=== PATIENT | female | born 1950 | race Caucasian/White ===

== ENCOUNTER → 2017-10-22 | Outpatient (CLI) | payer MEDICARE ==
[~2017-10-22] MED LIST: BACLOFEN20 MG PO; BACTRIM 400-801 EACH PO; CALCIUM600 MG PO; ESGIC 50-325-41 EACH PO; ESTROPIPATE1.5 MG PO; GABAPENTIN300 MG PO; MONTELUKAST SOD10 MG PO; NABUMETONE750 MG PO; NORCO 7.5-3251 EACH PO; OMEPRAZOLE20 MG PO; PRAVASTATIN SOD10 MG PO; PROCHLORPERAZIN10 MG PO; PROMETHAZINE HC25 M1 PO; REGLAN10 MG PO; SPIRONOLACTONE50 MG PO; ULTRAM50 MG PO; VENLAFAXINE HCL75 MG PO; VITAMIN D2000 UNIT PO
--- NOTE | 2017-10-23 07:57 | Diagnostic Imaging Report ---
Examination: MRI SPINE CERVICAL WITHOUT CONTRAST History: Chronic neck pain which radiates down the side of the left arm. Left cervical radiculopathy. Comparison studies: None Technique: Sagittal T1, T2 and IR, axial T2 and axial gradient echo intravenous contrast: None Findings: Alignment: Mild reversal of normal cervical lordosis centered at C5. No scoliosis. Cervicomedullary junction: No abnormalities. Patent foramen magnum. Soft tissues: No T2 hyperintense inflammatory changes. Spinal cord: Normal in size and signal from the foramen magnum through T1. Vertebrae: No fractures, infection or neoplasm. Subchondral cyst formation at the anterior margin of C2. Atypical (1.1 cm caudal dimension) hemangioma of the C2 vertebral body. Additional hemangiomata are demonstrated in the T1, T2, T3 and partially visualized T4 vertebral body. Degenerative changes: C1-C2: No abnormalities. C2-C3: Diffuse disc osteophyte complex, mild ligamentum flavum thickening and bilateral uncovertebral and facet arthropathy results in mild left neural foraminal narrowing and mild canal stenosis. No right foraminal stenosis. C3-C4: Diffuse disc osteophyte complex, mild ligamentum flavum thickening and bilateral uncovertebral arthropathy result in moderate right and severe left neural foraminal narrowing and moderate canal stenosis. Type I Modic change of the inferior and superior endplates posteriorly C3 and C4, respectively. C4-C5: Diffuse disc osteophyte complex and bilateral uncovertebral arthropathy result in severe bilateral neural foraminal narrowing and mild canal stenosis. C5-C6: Asymmetric to left disc osteophyte complex, mild ligamentum flavum thickening and bilateral uncovertebral arthropathy result in mild right and severe left neural foraminal narrowing and mild canal stenosis. C6-C7: Diffuse disc osteophyte complex, mild ligamentum flavum thickening and bilateral uncovertebral arthropathy results in moderate bilateral neural foraminal narrowing and mild canal stenosis. C7-T1: Diffuse disc osteophyte complex, mild ligamentum flavum thickening and left uncovertebral arthropathy result in mild left neural foraminal narrowing and mild canal stenosis. No right foraminal stenosis. IMPRESSION: 1. Degenerative changes from C2-C3 through C7-T1 with moderate canal stenosis at C3-C4 and mild canal stenosis at C2-C3 and from C4-C5 through C7-T1. 2. Degenerative foraminal stenosis: severe on the left at C3-C4 and C5-C6 and severe bilaterally at C4-C5. Signed by: Dr. Kaitlin Lao M.D. on 10/23/2017 7:53 AM
--- NOTE | 2017-10-23 08:11 | Diagnostic Imaging Report ---
Examination: MRI SPINE LUMBAR WITHOUT CONTRAST History: Chronic low back pain radiating down the back of the left lower extremity with associated weakness. Comparison studies: None Technique: Sagittal, coronal and axial T2 , sagittal T1 and STIR; axial spin density oblique. Findings: Number of lumbar vertebral bodies: Five. Alignment: Normal lordosis. Mild leftward curvature centered at L3. Soft tissues: No T2 hyperintense inflammatory changes. Posterior paraspinal soft tissues and muscles: No abnormality. Lower thoracic cord: Normal in signal and morphology. The tip of the conus is at L1. Cauda equina: No masses. No arachnoiditis. Vertebrae: No fractures, infection or neoplasm. Mixed type I and type II Modic changes of the L1-S1 vertebrae. Degenerative changes: L1-L2: Mild bilateral facet arthropathy. Mild diffuse disc bulge. No foraminal or canal stenosis. L2-L3: Diffuse disc bulge and mild bilateral facet arthropathy result in mild canal stenosis. No foraminal narrowing. L3-L4: Diffuse disc, mild ligamentum flavum thickening and mild bilateral facet arthropathy result in moderate right neural foraminal narrowing and mild canal stenosis. No left foraminal stenosis. L4-L5: Diffuse disc bulge mild ligamentum flavum thickening and mild bilateral facet arthropathy result in mild bilateral neural foraminal narrowing and mild canal stenosis. L5-S1: Asymmetric to the left disc bulge and mild bilateral facet arthropathy result in moderate left neural foraminal narrowing. No right foraminal or canal stenosis. IMPRESSION: 1. Degenerative changes from L1-L2 through L5-S1 with mild canal stenosis from L2-L3 through L4-L5. 2. Moderate right foraminal narrowing at L3-L4 and moderate on the left at L5-S1. Signed by: Dr. Kaitlin Lao M.D. on 10/23/2017 8:08 AM
== END | disposition home or self-care (01) ==
LOC: MRI 09:49
PROVIDERS: ATTEND Family Medicine
DX: M54.2 Cervicalgia (principal); M54.5 Low back pain; M47.812 Spondylosis without myelopathy or radiculopathy, cervical region; M47.816 Spondylosis without myelopathy or radiculopathy, lumbar region; M47.817 Spondylosis without myelopathy or radiculopathy, lumbosacral region; M48.02 Spinal stenosis, cervical region
CPT/HCPCS: 72141; 72148

== ENCOUNTER 2017-12-16 10:03 | Observation (INO) | payer MEDICARE ==
[~2017-12-16] VITALS: Ht 172.7 cm; Wt 71.9 kg
--- OUTSIDE RECORDS SUMMARY | 2017-12-16 10:05 | XMS REPORT ---
Author Author [facility] Address Unknown Phone Unavailable Care Team Providers Care [employer] Supervisor Name Role Phone FARAZ CAMP Unavailable Unavailable Problems This patient has no known problems. Allergies, Adverse Reactions, Alerts This patient has no known allergies or adverse reactions. Medications This patient has no known medications. Results Test Description Test Time Test Comments Text Results Atomic Results Result Comments MRI SPINE CERVICAL WO [place] [address] Patient Name: JOSE R TERRY MR #: [id number] : 1950 Age/Sex: 67/F Req #: [id number] Adm Physician: Ordered by: FARAZ CAMP MD Report #: [id number] Location: MRI Room/Bed: Procedure: [id number] MRI/MRI SPINE CERVICAL WO Exam Date: Exam Time: REPORT STATUS: Signed Examination: MRI SPINE CERVICAL WITHOUT CONTRAST History: Chronic neck pain which radiates down the side of the left arm. Left cervical radiculopathy. Comparison studies: None Technique: Sagittal T1, T2 and IR, axial T2 and axial gradient echo intravenous contrast: None Findings: Alignment: Mild reversal of normal cervical lordosis centered at C5. No scoliosis. Cervicomedullary junction: No abnormalities. Patent foramen magnum. Soft tissues: No T2 hyperintense inflammatory changes. Spinal cord: Normal in size and signal from the foramen magnum through T1. Vertebrae: No fractures, infection or neoplasm. Subchondral cyst formation at the anterior margin of C2. Atypical (1.1 cm caudal dimension) hemangioma of the C2 vertebral body. Additional hemangiomata are demonstrated in the T1, T2, T3 and partially visualized T4 vertebral body. Degenerative changes: C1-C2: No abnormalities. C2-C3: Diffuse disc osteophyte complex, mild ligamentum flavum thickening and bilateral uncovertebral and facet arthropathy results in mild left neural foraminal narrowing and mild canal stenosis. No right foraminal stenosis. C3-C4: Diffuse disc osteophyte complex, mild ligamentum flavum thickening and bilateral uncovertebral arthropathy result in moderate right and severe left neural foraminal narrowing and moderate canal stenosis. Type I Modic change of the inferior and superior endplates posteriorly C3 and C4, respectively. C4-C5: Diffuse disc osteophyte complex and bilateral uncovertebral arthropathy result in severe bilateral neural foraminal narrowing and mild canal stenosis. C5-C6: Asymmetric to left disc osteophyte complex, mild ligamentum flavum thickening and bilateral uncovertebral arthropathy result in mild right and severe left neural foraminal narrowing and mild canal stenosis. C6-C7: Diffuse disc osteophyte complex, mild ligamentum flavum thickening and bilateral uncovertebral arthropathy results in moderate bilateral neural foraminal narrowing and mild canal stenosis. C7-T1: Diffuse disc osteophyte complex , mild ligamentum flavum thickening and left uncovertebral arthropathy result in mild left neural foraminal narrowing and mild canal stenosis. No right foraminal stenosis. IMPRESSION: 1. Degenerative changes from C2-C3 through C7-T1 with moderate canal stenosis at C3-C4 and mild canal stenosis at C2-C3 and from C4-C5 through C7-T1. 2. Degenerative foraminal stenosis : severe on the left at C3-C4 and C5-C6 and severe bilaterally at C4-C5. Signed by: Dr. Kaitlin Lao M.D. on 10/23/2017 7:53 AM Dictated By: KAITLIN PARKER MD [id number] Transcribed By: HEDY on 10/23/17 [id number] COPY TO: FARAZ CAMP MD MRI SPINE LUMBAR WO [place] [id number] Patient Name: JOSE R TERRY MR #: [id number] : 1950 Age/Sex: 67/F [facility] #: [id number] Re #: [id number] [facility] Physician: Ordered by: FARAZ CAMP MD Report #: [id number] Location: MRI Room/Bed: Procedure: [id number] MRI/MRI SPINE LUMBAR WO Exam Date: Exam Time: REPORT STATUS: Signed Examination: MRI SPINE LUMBAR WITHOUT CONTRAST History: Chronic low back pain radiating down the back of the left lower extremity with associated weakness. Comparison studies: None Technique: Sagittal, coronal and axial T2 , sagittal T1 and STIR; axial spin density oblique. Findings: Number of lumbar vertebral bodies: Five. Alignment: Normal lordosis. Mild leftward curvature centered at L3. Soft tissues: No T2 hyperintense inflammatory changes. Posterior paraspinal soft tissues and muscles: No abnormality. Lower thoracic cord: Normal in signal and morphology. The tip of the conus is at L1. Cauda equina : No masses. No arachnoiditis. Vertebrae: No fractures, infection or neoplasm. Mixed type I and type II Modic changes of the L1-S1 vertebrae. Degenerative changes: L1-L2: Mild bilateral facet arthropathy. Mild diffuse disc bulge. No foraminal or canal stenosis. L2-L3: Diffuse disc bulge and mild bilateral facet arthropathy result in mild canal stenosis. No foraminal narrowing. L3-L4: Diffuse disc, mild ligamentum flavum thickening and mild bilateral facet arthropathy result in moderate right neural foraminal narrowing and mild canal stenosis. No left foraminal stenosis. L4-L5: Diffuse disc bulge mild ligamentum flavum thickening and mild bilateral facet arthropathy result in mild bilateral neural foraminal narrowing and mild canal stenosis. L5-S1: Asymmetric to the left disc bulge and mild bilateral facet arthropathy result in moderate left neural foraminal narrowing. No right foraminal or canal stenosis. IMPRESSION: 1. Degenerative changes from L1-L2 through L5- S1 with mild canal stenosis from L2-L3 through L4-L5. 2. Moderate right foraminal narrowing at L3-L4 and moderate on the left at L5-S1. Signed by : Dr. Kaitlin Lao M.D. on 10/23/2017 8:08 AM Dictated By: KAITLIN PARKER MD 7 COPY TO: FARAZ CAMP MD
[2017-12-16 10:40] LABS: BASOPHILS # (AUTO) 0.1 (0.0-0.1); EOSINOPHILS # (AUTO) 0.2 (0.0-0.4); EOSINOPHILS % 2.7 % (0.0-6.0); HEMATOCRIT 44.4 % (34.2-44.1); HEMOGLOBIN 14.8 g/dL (12.0-16.0); LYMPHOCYTES # (AUTO) 1.6 (1.0-3.2); LYMPHOCYTES % 23.2 % (18.0-39.1); MEAN CORPUSCULAR HEMOGLOBIN 31.4 pg (28-32); MEAN CORPUSCULAR HGB CONC 33.3 g/dL (31-35); MEAN CORPUSCULAR VOLUME 94.3 fL (81-99); MONOCYTES # (AUTO) 0.5 (0.2-0.8); MONOCYTES % 6.8 % (4.4-11.3); NEUTROPHILS # (AUTO) 4.7 (2.1-6.9); NEUTROPHILS % 65.9 % (38.7-80.0); PLATELET COUNT 231 x10e3/uL (140-360); RED BLOOD COUNT 4.71 x10e6/uL (3.6-5.1); RED CELL DISTRIBUTION WIDTH 12.6 % (11.7-14.4)
[2017-12-16 10:43] LABS: INR 0.95; PROTHROMBIN TIME 11.9 seconds (11.9-14.5)
[2017-12-16 10:44] LABS: PARTIAL THROMBOPLASTIN TIME 26.4 seconds (23.8-35.5)
[2017-12-16 10:54] LABS: ALANINE AMINOTRANSFERASE 26 IU/L (0-55); ALBUMIN 3.5 g/dL (3.5-5.0); ALBUMIN/GLOBULIN RATIO 1.2 (0.8-2.0); ALKALINE PHOSPHATASE 134 IU/L (40-150); ANION GAP 10.1 mmol/L (8-16); BLOOD UREA NITROGEN 14 mg/dL (7-26); BUN/CREATININE RATIO 20 (6-25); CALCIUM 9.3 mg/dL (8.4-10.2); CARBON DIOXIDE 31 mmol/L (22-29); CHLORIDE 103 mmol/L (98-107); CREATINE KINASE 298 IU/L (29-168); CREATININE, SERUM 0.71 mg/dL (0.57-1.11); EST GLOMERULAR FILTRATION RATE > 60 ML/MIN (60-); GLUCOSE 95 mg/dL (74-118); MAGNESIUM 1.9 MG/DL (1.3-2.1); POTASSIUM 4.1 mmol/L (3.5-5.1); SODIUM 140 mmol/L (136-145)
--- NOTE | 2017-12-16 11:15 | Diagnostic Imaging Report ---
Exam: Head CT without contrast History: Left-sided weakness, confusion Comparison studies: None Technique: Axial images were obtained from the skull base to the vertex. Coronal and sagittal images reconstructed from the axial data. Intravenous contrast: None Findings: Scalp: No abnormalities. Bones: No fractures, blastic or lytic lesions. Brain volume: Mild generalized volume loss with slightly greater volume loss in the bilateral parietal lobes Ventricles: Normal in size and configuration. No hydrocephalus. Extra-axial spaces: No masses, no fluid collection. Parenchyma: No mass, acute hemorrhage or acute or chronic cortical vascular insults. No abnormal densities. Sellar/suprasellar region: No abnormalities. Craniocervical junction: Patent foramen magnum. No Chiari one malformation. Incidental findings: Atherosclerotic calcifications in the carotid siphons. Mild nonspecific left ethmoidal inflammatory mucosal thickening. IMPRESSION: 1. No acute intracranial abnormalities. 2. Mild generalized volume volume loss which is slightly greater in the bilateral parietal lobes. Signed by: Dr. Karl Bergman M.D. on 12/16/2017 11:12 AM
--- NOTE | 2017-12-16 11:16 | Diagnostic Imaging Report ---
PROCEDURE:CHEST SINGLE (PORTABLE) TECHNIQUE:Portable AP chest INDICATION:Possible stroke COMPARISON:None. FINDINGS: Lungs are clear and symmetrically inflated. No pleural effusions. Enlarged cardiac silhouette for technique. Intact skeleton. CONCLUSION: Cardiomegaly without acute abnormality. Dictated by: Taj Contreras M.D. on 12/16/2017 at 11:19 Electronically approved by: Taj Contreras M.D. on 12/16/2017 at 11:19
[2017-12-16] MEDS: SODIUM CHLORIDE 0.9% 1000ML 1,000 ML IV SCH ×2 (11:19→21:20)
[2017-12-16 12:00] VITALS: BP 135/71
[2017-12-16 12:49] VITALS: BP 135/71
[2017-12-16] MEDS ORDERED: NORCO 10-325 T1 EACH (13:33)
[2017-12-16] MEDS ORDERED: VITAMIN D5000 UNIT (13:33)
--- NOTE | 2017-12-16 16:36 | Diagnostic Imaging Report ---
Exam: Brain MRI without IV contrast History: Left-sided weakness, impaired speech, possible stroke Comparison studies: Head CT performed on the same date (12/16/2017) Technique: Sagittal axial T2 FS, axial DWI, axial T2 surgery, axial T1 FLAIR and axial coronal T2 FLAIR. Intravenous contrast: None Findings: Scalp: Normal in signal. No masses. Bone marrow: Normal in signal intensity. Brain sulci: Parietal sulci are mildly prominent. Remaining sulci are within normal limits for age. Ventricles: Normal in size. No hydrocephalus. Extra axial spaces: No mass, no fluid collection. Parenchyma: A 7 mm focus of decreased T2/T2*signal in the posterior right parietal lobe without surrounding edema or mass effect may reflect chronic hemorrhage as sequela of previous nonspecific insult or possibly small cavernous malformation. No other mass or hemorrhage. Subtle T2 FLAIR hyperintense signal changes in the periventricular white matter are nonspecific but most compatible with chronic small vessel ischemic changes. Suprasellar region: No abnormalities. Craniocervical junction: Patent foramen magnum. No Chiari malposition. Vessels: Normal flow-voids in the arteries and sinuses. Incidental findings: * Indeterminate, nonspecific, nonaggressive-appearing T2 STIR hyperintense lesions in the dens and C2 vertebral body, possibly atypical hemangiomas. Disc osteophyte complex and thickened ligamentum flavum result in mild to moderate canal stenosis at C3-C4 (cannot further evaluate on this exam tailored to evaluate the brain). Cervical spine MRI may further evaluate. * Possible changes of previous endoscopic sinus surgery which could be be correlated with surgical history. Nonspecific T2 hyperintense inflammatory mucosal thickening in the left ethmoid and left maxillary sinus. IMPRESSION: 1. No acute intracranial abnormalities. Specifically, no acute ischemia. 2. Small incidental right parietal chronic microhemorrhage or possibly small cavernous malformation. 3. Mild supratentorial chronic microvascular ischemic changes. 4. Mild nonspecific parietal volume loss. 5. Incidental findings as described. Findings discussed with Dr. Sadler at 4:25 PM on 10/2017. Signed by: Dr. Karl Bergman M.D. on 12/16/2017 4:32 PM
[2017-12-16 16:37] VITALS: BP 133/77
[2017-12-16 20:00] VITALS: BP 105/56
--- NOTE | 2017-12-16 20:12 | Consultation ---
DATE OF CONSULTATION: December 16, 2017 NEUROLOGY CONSULTATION HISTORY OF PRESENT ILLNESS: Ms. Fritz is a 67-year-old [id number] woman with past medical history significant for hyperlipidemia, migraines, and tobacco use, who presented to the Emergency Center at [facility] on December 16, 2017 with neurological deficits in the setting of severe headache. At approximately 0300 on December 14, 2017, the patient woke with a severe headache which she describes as follows: The pain is located across the forehead and did not radiate. Ms. Fritz has difficulty describing the quality of the pain. Eventually, she describes it as pressure more than pounding or throbbing. The pain is rated 5-6 out of 10. Associated with headache were nausea without vomiting and dizziness which is further described as lightheadedness. Ms. Fritz is uncertain if she experienced photophobia or phonophobia associated with this headache. While the patient experiences headache, she experienced gradual onset of dysarthria, mild expressive aphasia, left hemiparesis and tingling (face, arm, and leg), impairment of balance and gait, and confusion. The headache, as described above, resolved after a few hours. However, the neurological symptoms persisted for approximately 2 days. The severity of the symptoms would wax and wane, but overall the symptoms gradually improved over approximately 48 hours. On the morning of admission, Ms. Fritz contacted her primary care physician, Dr. Mac Anthony, regarding her symptoms. Dr. Anthony advised the patient to proceed to the Emergency Center at [facility] immediately for further evaluation. Upon arrival in the Emergency Center, the patient was afebrile with a blood pressure 131/76 mm Hg and pulse of 80 beats per minute. Documentation the patient's neurological examination is not available for review at this time. A CT of the brain without contrast was performed in the Emergency Center. The study did not show evidence of recent large territorial ischemia, or hemorrhage. Ms. Fritz was admitted to [facility] under observation status for further evaluation and treatment of her symptoms. The patient does not report experiencing similar symptoms previously. As mentioned above, the patient has a long history of migraines. At present, she experiences migraines 2 to 3 times per week. Ms. Fritz has never taken a prophylactic medication for her migraines (to her recollection). Most recently, the patient was taking Fioricet 4 times daily to treat her headaches. However, the prescription for this medication ran out approximately 1 week ago. REVIEW OF SYSTEMS: Confusion, dysarthria, aphasia, facial weakness and tingling, left knee paresis and tingling, impairment of balance, impairment of gait, dizziness, nausea. Otherwise the 12 point review of systems is negative. PAST MEDICAL HISTORY: Hyperlipidemia, stomach cancer, mixed depression/anxiety disorder, migraines, seizures (non epileptic ?), skin cancer, chronic pain. PAST SURGICAL HISTORY: Resection of the stomach and surrounding lymph nodes, cholecystectomy, excision of multiple skin cancers, total hysterectomy. PAST HOSPITALIZATIONS: Surgeries/procedures as listed, complications from cancer, childbirth once, rheumatic fever, infectious mononucleosis. FAMILY HISTORY: Patient's paternal and maternal grandparents are . Their medical histories are unknown. The patient's father is . He had throat and lung cancer as well as liver cancer. The patient's mother is . She had coronary artery disease with 5 heart attacks, stroke, and intestinal cancer. The patient's mother had nephrolithiasis as well. The patient has 3 siblings. One brother is alive and has prostate cancer and nephrolithiasis. A second brother is alive and has nephrolithiasis. Patient's sister is alive and has nephrolithiasis. Ms. Fritz has 1 son who is alive. He has a prior history of seizures. SOCIAL HISTORY: Patient is . She attended 2 years of college as well as various professional schools. She worked for an [employer] company. The patient does report tobacco use. She has smoked 2-4 packs per day for the past 50 years. The patient does not report current or prior alcohol or recreational drug use. HOME MEDICATIONS: Baclofen 20 mg by mouth 4 times daily, 1 tab by mouth as needed for headache, vitamin D3 5000 units by mouth daily, estropipate 1.5 mg by mouth daily, gabapentin 300 mg by mouth three times daily, [place] 10-325 one tablet by mouth every 6 hours as needed for pain, Reglan 10 mg by mouth 4 times daily, montelukast 10 mg by mouth every morning daily, nabumetone 750mg by mouth twice daily, omeprazole 20 mg by mouth three times daily, pravastatin 10 mg by mouth at bedtime daily: Prochlorperazine 10 mg by mouth 4 times daily, promethazine 25 mg by mouth as needed for nausea, spironolactone 50 mg by mouth daily, venlafaxine 75 mg by mouth daily. ALLERGIES: TOPAMAX CAUSES ITCHING. THE ADHESIVE ON NICOTINE PATCHES CAUSES BLISTERING. NO KNOWN FOOD ALLERGIES. NO KNOWN ALLERGIES TO LATEX. NO KNOWN ALLERGIES TO IODINE OR OTHER CONTRAST MATERIALS. PHYSICAL EXAMINATION: VITAL SIGNS: Height 68 inches, weight 159 pounds, BMI 24.1 kg per meter squared. Blood pressure 133/77 mmHg, pulse 69 beats per minute, respiratory rate 20 breaths per minute, oxygen saturation 99% on room air. GENERAL: The patient is awake and alert. Does not appear distressed. HEENT: Normocephalic and atraumatic. Pupils are equal, round and reactive to light. Moist mucous membranes. NECK: Supple. No appreciable thyromegaly. No appreciable carotid bruits. CARDIOVASCULAR: S1 and S2. Regular rate and rhythm. No murmurs, rubs or gallops. RESPIRATORY: Clear to auscultation bilaterally. No wheezes, rhonchi or rales. EXTREMITIES: The skin is warm and dry. No clubbing or cyanosis. Trace pretibial pitting edema. The posterior tibial and dorsalis pedis pulses are 1+ and symmetric. SKIN: The skin appears very dry and flaky. NEUROLOGIC: Memory/attention: The patient is awake and alert. Oriented to person, place, time, and situation. CRANIAL NERVES: Cranial nerve I: Not tested. Cranial nerves II, III, IV, : Pupils are equal and round, react briskly to light (from 4 mm to 2 mm). Extraocular movements intact. No nystagmus. Cranial nerve V: Sensation to light touch and pinprick is intact in the bilateral V1 through V3 distributions. Strength of the temporalis and masseter muscles is within normal limits. Cranial nerve VII: The face is symmetric, as are all facial movements. Strength is within normal limits. Cranial nerve VIII: Hearing is intact to finger rub bilaterally. Cranial nerve IX and X: The soft palate elevates equally and symmetrically. Cranial nerve XI: Normal strength of the bilateral sternocleidomastoid and trapezius muscles. Cranial nerve XII: The tongue protrudes midline and moves symmetrically from side to side. STRENGTH: Bulk is normal, and strength is 5/5 in the bilateral deltoids, biceps, triceps, wrist flexors and extensors, finger flexors and extensors, intrinsic hand muscles, hip flexors, knee flexors and extensors, ankle dorsiflexion and plantar flexion, and intrinsic foot muscles. Tone is normal. DTRs: Deep tendon reflexes are 2+ and symmetric at the triceps, biceps, brachioradialis, patellas, and Achilles. Plantar responses are flexor bilaterally. SENSATION: Intact to light touch and pinprick in both arms and both legs. CEREBELLAR: Gnjzao-xcch-yzjsll and heel-austin movements are intact without dysmetria or other impairment. GAIT: Deferred. SPEECH: Spontaneous speech is normal without appreciable dysarthria or aphasia. Repetition is intact. INVOLUNTARY MOVEMENTS: None. PRONATOR DRIFT: None. LABORATORY DATA: Sodium 140, potassium 4.1, chloride 103, carbon dioxide 31, anion gap 10.1, BUN 14, creatinine 0.71, estimated GFR greater than 60. BUN to creatinine ratio 20. Glucose 95, calcium 9.3 and magnesium 1.9. Total bilirubin 0.2, AST 25, ALT 26, alkaline phosphatase 134. Total protein 6.5, albumin 3.5, globulin 3.0. Albumin to globulin ratio 1.2. Creatinine kinase 298, CK-MB 5.40, troponin I less than 0.001, B-natriuretic peptide less than 10.0. The CBC with differential and platelets reveals a white blood cell count 7.08 with a normal differential. The hemoglobin and hematocrit are 14.8 and 44.4, respectively. The platelet count is 231,000. PT 11.9 and INR 0.95. PTT 26.4. DIAGNOSTIC STUDIES: 1. EKG on 12/16/2017: Normal sinus rhythm at 73 beats per minute. 2. Chest x-ray 12/16/2017: Cardiomegaly without acute abnormality. 3. CT of the brain without contrast 12/16/2017: On my review, there is no evidence of recent large territorial ischemia, hemorrhage, mass, or mass effect. 4. MRI of the brain without contrast 12/16/2017: There is no evidence of recent large territorial ischemia, hemorrhage, mass, or mass effect. There is a small lesion within the right parietal lobe compatible with either a chronic micro-hemorrhage, or possibly a small vascular malformation. Diffuse cerebral atrophy, more prominent over the bilateral parietal lobes. Scattered PT/flair white matter hyper-intensities compatible with mild chronic small vessel ischemic disease. 5. Echocardiogram 12/16/2017: Ejection fraction 65% to 70%. Small pericardial effusion. Mild aortic insufficiency, pulmonic insufficiency. Tricuspid regurgitation and mitral regurgitation. ASSESSMENT AND PLAN: Ms. Fritz is a 67-year-old [id number] woman with past medical history significant for hyperlipidemia, migraines, and tobacco use, admitted with neurological deficits in the setting of severe headache. At present, the patient's neurological examination is nonfocal. Her laboratory data and other diagnostic studies have been reviewed and are documented above. The symptoms Ms. Fritz has experienced over the past few days are/were a complicated migraine. The diagnosis was discussed in detail with the patient. Given frequency of her migraines (2 to 3 times per week), treatment with a prophylactic medication is indicated. Ms. Fritz is taking venlafaxine 75 mg by mouth daily for treatment of mixed depression/anxiety disorder. Venlafaxine is an excellent migraine prophylactic medication. The dose will be increased to 150 mg by mouth daily for migraine prophylaxis as well as treatment of mixed depression/anxiety disorder. Thank you for this consultation. There are no further recommendations from the neurology service at this time. I have advised Ms. Fritz to follow up with me as an outpatient for further treatment of her migraines. Time spent: 50 minutes. Job#: [id number] GH [id number]
[2017-12-16 22:00] VITALS: BP 105/56
[2017-12-17] VITALS: BP 93/51
[2017-12-17 00:29] VITALS: BP 93/51
[2017-12-17] MEDS: SODIUM CHLORIDE 0.9% 1000ML 1,000 ML IV SCH (02:37)
[2017-12-17 04:00] VITALS: BP 100/57
[2017-12-17 08:16] VITALS: BP 119/67
[2017-12-17] MEDS ORDERED: VENLAFAXINE HCL 75 MG CAPCR PO SCH (09:00)
[2017-12-17] MEDS ORDERED: VENLAFAXINE HCL75 MG PO (09:17)
== END 2017-12-17 10:33 | disposition home or self-care (01) ==
LOC: ER 10:03 → ERHOLD 11:01 → IMCU 11:50
PROVIDERS: ADMIT Internal Medicine; ATTEND Internal Medicine
DX: G43.109 Migraine with aura, not intractable, without status migrainosus (principal); Z72.0 Tobacco use; I10 Essential (primary) hypertension; E78.5 Hyperlipidemia, unspecified; Z85.028 Personal history of other malignant neoplasm of stomach
CPT/HCPCS: 36415; 70450; 70551; 71045; 80053; 82550; 82553; 83735; 83880; 84484; 85025; 85610; 85730; 93005; 93306; 99284; G0378 ×2; J7030

== ENCOUNTER 2018-04-27 07:51 | Inpatient (IN) | payer MEDICARE ==
[~2018-04-27] VITALS: Ht 172.7 cm; Wt 73.9 kg
[~2018-04-27 07:51] MED LIST changes: +NORCO 10-325 T1 EACH; +VITAMIN D5000 UNIT
[2018-04-27] MEDS ORDERED: SODIUM CHLORIDE 0.9% 1000ML 1,000 ML IV STA (08:02)
[2018-04-27 08:29] LABS: BASOPHILS # (AUTO) 0.1 (0.0-0.1); BASOPHILS % 1.1 % (0.0-1.0); EOSINOPHILS # (AUTO) 0.1 (0.0-0.4); EOSINOPHILS % 1.6 % (0.0-6.0); HEMATOCRIT 47.4 % (34.2-44.1); HEMOGLOBIN 15.1 g/dL (12.0-16.0); LYMPHOCYTES # (AUTO) 1.4 (1.0-3.2); LYMPHOCYTES % 18.7 % (18.0-39.1); MEAN CORPUSCULAR HEMOGLOBIN 29.7 pg (28-32); MEAN CORPUSCULAR HGB CONC 31.9 g/dL (31-35); MEAN CORPUSCULAR VOLUME 93.3 fL (81-99); MONOCYTES # (AUTO) 0.7 (0.2-0.8); MONOCYTES % 8.7 % (4.4-11.3); NEUTROPHILS # (AUTO) 5.2 (2.1-6.9); NEUTROPHILS % 69.5 % (38.7-80.0); PLATELET COUNT 252 x10e3/uL (140-360); RED BLOOD COUNT 5.08 x10e6/uL (3.6-5.1); RED CELL DISTRIBUTION WIDTH 13.1 % (11.7-14.4)
[2018-04-27 08:30] LABS: CLARITY,URINE CLEAR (CLEAR); COLOR,URINE YELLOW (YELLOW)
[2018-04-27] MEDS ORDERED: FAMOTIDINE 20 MG/2 ML VIAL IV ONE (08:30)
[2018-04-27] MEDS ORDERED: ONDANSETRON HCL INJ 2 MG/ML VIAL IV ONE (08:30)
[2018-04-27 08:31] LABS: KETONES,URINE NEGATIVE (NEGATIVE); LEUKOCYTE ESTERASE ,URINE NEGATIVE (NEGATIVE); NITRITE,URINE NEGATIVE (NEGATIVE); PROTEIN,URINE DIPSTICK NEGATIVE (NEGATIVE)
[2018-04-27 08:38] LABS: INR 0.85; PROTHROMBIN TIME 12.4 seconds (11.9-14.5)
[2018-04-27 08:40] LABS: RBC,URINE 0-5 /HPF (0-5); WBC,URINE (MAN) 0-5 /HPF (0-5)
[2018-04-27 08:41] LABS: BACTERIA,URINE FEW /HPF; EPITHELIAL CELLS,URINE FEW /LPF; MUCUS,URINE FEW (RARE)
[2018-04-27 08:48] LABS: BENZODIAZEPINES SCREEN,URINE POSITIVE (NEGATIVE)
[2018-04-27 08:49] LABS: AMPHETAMINES SCREEN,URINE POSITIVE (NEGATIVE); PHENCYCLIDINE SCREEN,URINE NEGATIVE (NEGATIVE)
[2018-04-27 08:52] LABS: BILIRUBIN,URINE NEGATIVE (NEGATIVE); URINE UROBILINOGEN 0.2 mg/dL (0.2 - 1)
--- NOTE | 2018-04-27 09:03 | Diagnostic Imaging Report ---
EXAM: XR CHEST 1 VIEW DATE: 04/27/2018 8:02 AM INDICATION: Altered mental status, fall COMPARISON: None FINDINGS: Lines and Tubes: None Heart and Mediastinum: No acute cardiomediastinal findings. Lungs and Pleura: No significant pleural effusion, pneumothorax, or focal consolidation. Bones and Soft Tissues: No acute findings. IMPRESSION: 1. No acute cardiopulmonary findings. Signed by: Dr. Ian Chou MD on 04/27/2018 9:00 AM
--- NOTE | 2018-04-27 09:05 | Diagnostic Imaging Report ---
EXAMINATION: Head and cervical spine CT without contrast. HISTORY: Status post fall, altered mental status, evaluate for fractures COMPARISON: Head CT on 12/16/2017 and cervical spine MRI and 10/22/2017 TECHNIQUE: Multidetector axial images were obtained with, without contrast from the foramen magnum to the vertex and through the cervical spine. The images were reconstructed using brain and bone algorithms. Thin section brain images were reformatted into coronal and sagittal planes. Dose modulation, iterative reconstruction, and/or weight based adjustment of the mA/kV was utilized to reduce the radiation dose to as low as reasonably achievable. HEAD CT FINDINGS: Skull: No lytic or blastic lesions. Left superior parietal scalp swelling without underlying fractures. Parenchyma: Normal. No mass, hemorrhage or CT evidence of acute vascular insult. Brain volume: Persistent mild bilateral parietal volume loss. Ventricles: No hydrocephalus or displacement. Arteries: No density suggestive of thrombus. Dural sinuses: No abnormal density. Extra-axial spaces: No abnormal density. Foramen magnum: No mass, Chiari malformation, or basilar invagination. Sella: No obvious mass. Paranasal/mastoid sinuses: Imaged portions unremarkable. CERVICAL SPINE CT FINDINGS: Alignment:Normal alignment and lordosis. Soft tissues: Normal. Vertebrae: Normal height and density. No acute fracture, infection or neoplasm. Degenerative changes: C1-C2: Persistent degenerative changes with subchondral cyst and sclerosis. No stenoses C2-C3: Prominent facet arthrosis minimally on the left without stenoses C3-C4: Disc osteophyte complex formation, uncovertebral and facet arthrosis. Moderate right and severe left foraminal stenosis. Moderate spinal canal stenosis. Grade 1 anterolisthesis. C4-C5: Disc osteophyte complex formation, uncovertebral and facet arthrosis. Moderate right and severe left foraminal stenosis. C5-C6: Disc osteophyte complex formation, uncovertebral arthrosis. Moderate spinal canal and moderately severe bilateral foraminal stenoses C6-C7: Disc osteophyte formation, uncovertebral and facet arthrosis. Moderate spinal canal and bilateral foraminal stenoses C7-T1: Bilateral facet arthrosis. Mild left foraminal stenosis. IMPRESSION: Head CT: 1. No acute postraumatic intracranial hemorrhage. 2. Unchanged mild bilateral parietal volume loss compared to head CT on 12/16/17. Cervical spine CT: 1. No acute fractures or dislocations. 2. Stable chronic degenerative changes compared to cervical spine MRI on 10/22/2017. Note: Acute post traumatic spinal cord, vascular or ligamentous injury cannot adequately be assessed with CT. Signed by: Dr. Annia Gilmore M.D. on 04/27/2018 9:02 AM
[2018-04-27 09:09] LABS: ALANINE AMINOTRANSFERASE 17 IU/L (0-55); ALBUMIN 3.7 g/dL (3.5-5.0); ALBUMIN/GLOBULIN RATIO 1.1 (0.8-2.0); ALKALINE PHOSPHATASE 145 IU/L (40-150); ANION GAP 18.7 mmol/L (8-16); BLOOD UREA NITROGEN 20 mg/dL (7-26); BUN/CREATININE RATIO 21 (6-25); CARBON DIOXIDE 23 mmol/L (22-29); CHLORIDE 104 mmol/L (98-107); CREATININE, SERUM 0.97 mg/dL (0.57-1.11); EST GLOMERULAR FILTRATION RATE 57 ML/MIN (60-); GLUCOSE 136 mg/dL (74-118); LIPASE 4 U/L (8-78); POTASSIUM 4.7 mmol/L (3.5-5.1); SODIUM 141 mmol/L (136-145)
[2018-04-27 09:17] LABS: ACETAMINOPHEN < 3 ug/mL (10-30)
[2018-04-27 09:30] LABS: THYROID STIMULATING HORMONE 0.455 uIU/mL (0.350-4.940)
[2018-04-27 09:34] LABS: SALICYLATE < 5.0 mg/dL (0-30)
[2018-04-27] MEDS ORDERED: ONDANSETRON HCL INJ 2 MG/ML VIAL IV PRN (10:45)
[2018-04-27] MEDS: SODIUM CHLORIDE 0.9% 1000ML 1,000 ML IV SCH (15:10)
[2018-04-27 18:38] VITALS: BP 115/65
[2018-04-27 19:00] VITALS: BP_SYST 105; BP_SYST 115; BP_DIAS 59; BP_DIAS 65
[2018-04-27 20:00] VITALS: BP 105/59
[2018-04-28] VITALS: BP 124/66
[2018-04-28] MEDS: SODIUM CHLORIDE 0.9% 1000ML 1,000 ML IV SCH ×3 (02:08→12:30)
[2018-04-28 04:00] VITALS: BP 129/71
[2018-04-28 06:45] LABS: BASOPHILS # (AUTO) 0.1 (0.0-0.1); BASOPHILS % 0.6 % (0.0-1.0); EOSINOPHILS # (AUTO) 0.1 (0.0-0.4); EOSINOPHILS % 0.6 % (0.0-6.0); HEMOGLOBIN 12.9 g/dL (12.0-16.0); LYMPHOCYTES # (AUTO) 1.1 (1.0-3.2); LYMPHOCYTES % 12.4 % (18.0-39.1); MEAN CORPUSCULAR HEMOGLOBIN 30.2 pg (28-32); MEAN CORPUSCULAR HGB CONC 32.3 g/dL (31-35); MEAN CORPUSCULAR VOLUME 93.7 fL (81-99); MONOCYTES # (AUTO) 0.5 (0.2-0.8); MONOCYTES % 5.1 % (4.4-11.3); NEUTROPHILS # (AUTO) 7.2 (2.1-6.9); PLATELET COUNT 210 x10e3/uL (140-360); RED BLOOD COUNT 4.27 x10e6/uL (3.6-5.1); RED CELL DISTRIBUTION WIDTH 13.1 % (11.7-14.4)
[2018-04-28 07:17] LABS: ALANINE AMINOTRANSFERASE 13 IU/L (0-55); ALBUMIN/GLOBULIN RATIO 1.1 (0.8-2.0); ALKALINE PHOSPHATASE 115 IU/L (40-150); ANION GAP 14.1 mmol/L (8-16); BLOOD UREA NITROGEN 12 mg/dL (7-26); BUN/CREATININE RATIO 17 (6-25); CALCIUM 9.4 mg/dL (8.4-10.2); CARBON DIOXIDE 25 mmol/L (22-29); CHLORIDE 107 mmol/L (98-107); CREATININE, SERUM 0.69 mg/dL (0.57-1.11); EST GLOMERULAR FILTRATION RATE > 60 ML/MIN (60-); GLUCOSE 110 mg/dL (74-118); POTASSIUM 5.1 mmol/L (3.5-5.1); SODIUM 141 mmol/L (136-145)
[2018-04-28 07:25] VITALS: BP 121/65
[2018-04-28 08:08] VITALS: BP 121/65
[2018-04-28 12:00] VITALS: BP 110/64
--- NOTE | 2018-06-18 00:51 | Discharge Summary ---
CHIEF COMPLAINT: Altered mental status. FINAL DIAGNOSIS: Suspect oversedation secondary to sedative medication. DISPOSITION: Home. A 68-year-old female, history of COPD, major depressive disorder, chronic pain, brought to the ER. Evaluation of profound lethargy and altered mental status. No vomiting or diarrhea. She underwent evaluation in the emergency room. Studies were performed. Toxicology studies were performed from the urine. Findings are showing positive evidence for benzodiazepines amphetamines, cannabinoids, opiates. There are no reported seizures and her neuro follow in the emergency room were showing evidence of lethargy, but moves all 4 extremities, was oriented to place and person. Admitted for observation, evaluation regarding extreme lethargy, multidrug use along with cannabis, COPD, chronic pain. Will be on IV fluids. Patient will be taken off all sedatives. However, the patient will continue hydrocodone. EKG showing sinus rhythm with fusion complexes, possible left atrial enlargement, left ventricular hypertrophy. Further care was being given. She was improving and the patient was able to be discharged home on 04/28/2018 in stable condition. No equipment or supplies were necessary, drains or Funez needed. Activity level was directed by me. She will be returning back to her PCP within 1 week. She was instructed to be regimented regarding her prescription medications. Recommend following up with Dr. Carr on an outpatient basis. Dictated By: MYNOR Phelan Job#: [id number] CQ
== END 2018-04-28 15:19 | disposition home or self-care (01) | DRG 918 ==
LOC: ER 07:51 → ERHOLD 10:33 → MED/SURG3 18:28
PROVIDERS: ADMIT Internal Medicine; ATTEND Internal Medicine
DX: T40.601A Poisoning by unspecified narcotics, accidental (unintentional), initial encounter (principal); T42.4X1A Poisoning by benzodiazepines, accidental (unintentional), initial encounter; T43.621A Poisoning by amphetamines, accidental (unintentional), initial encounter; T40.7X1A Poisoning by cannabis (derivatives), accidental (unintentional), initial encounter; R41.82 Altered mental status, unspecified; R53.83 Other fatigue; F17.210 Nicotine dependence, cigarettes, uncomplicated; J44.9 Chronic obstructive pulmonary disease, unspecified; F32.9 Major depressive disorder, single episode, unspecified; G89.29 Other chronic pain
CPT/HCPCS: 36415; 70450; 71045; 72125; 80053; 80307; 80320; 80329; 81001; 83605; 83690; 84443; 84484; 85025; 85610; 93005; 99285; J2405; J7030

== ENCOUNTER 2018-07-02 12:44 | Outpatient (RCR) | payer MEDICARE | END 2018-07-14 | LOC: PT 12:44 | PROVIDERS: ATTEND Family Medicine | DX: M25.512 Pain in left shoulder (principal); M25.612 Stiffness of left shoulder, not elsewhere classified; M54.2 Cervicalgia; R29.3 Abnormal posture | CPT/HCPCS: 97110; 97140; 97162; G8987; G8988 ==

== ENCOUNTER 2018-08-04 16:00 | Outpatient (RCR) | payer MEDICARE | END 2018-08-14 | LOC: PT 16:00 | PROVIDERS: ATTEND Family Medicine | DX: M54.5 Low back pain (principal); M25.552 Pain in left hip; M25.551 Pain in right hip; M54.2 Cervicalgia; M25.512 Pain in left shoulder; M62.81 Muscle weakness (generalized); R29.3 Abnormal posture ==

== ENCOUNTER 2018-08-12 14:06 | Outpatient (RCR) | payer MEDICARE | END 2018-08-14 | LOC: PT 14:06 | PROVIDERS: ATTEND Family Medicine | DX: M54.5 Low back pain (principal); M54.42 Lumbago with sciatica, left side; M54.41 Lumbago with sciatica, right side; R26.81 Unsteadiness on feet; M62.81 Muscle weakness (generalized) ==

== ENCOUNTER 2018-08-21 14:36 | Outpatient (RCR) | payer MEDICARE | END 2018-09-11 | LOC: PT 14:36 | PROVIDERS: ATTEND Family Medicine | DX: M54.5 Low back pain (principal); M54.42 Lumbago with sciatica, left side; M54.41 Lumbago with sciatica, right side; M25.552 Pain in left hip; M25.551 Pain in right hip; M62.81 Muscle weakness (generalized) ==

== ENCOUNTER 2018-10-08 13:00 | Outpatient (RCR) | payer MEDICARE | END 2018-10-12 | LOC: PT 13:00 | PROVIDERS: ATTEND Family Medicine | DX: M54.5 Low back pain (principal); M54.42 Lumbago with sciatica, left side; M54.41 Lumbago with sciatica, right side; M35.3 Polymyalgia rheumatica; M53.86 Other specified dorsopathies, lumbar region; M62.81 Muscle weakness (generalized); R26.81 Unsteadiness on feet ==

== ENCOUNTER 2018-10-15 12:49 | Outpatient (RCR) | payer MEDICARE | END 2018-11-11 | LOC: PT 12:49 | PROVIDERS: ATTEND Family Medicine | DX: M54.42 Lumbago with sciatica, left side (principal); M54.41 Lumbago with sciatica, right side; M62.81 Muscle weakness (generalized); R26.81 Unsteadiness on feet ==